=== PATIENT | female | born 1970 | race Caucasian/White ===

== ENCOUNTER → 2017-11-19 | Outpatient (CLI) | payer BC | LOC: MC.RAD 08:36 | DX: Z12.31 Encounter for screening mammogram for malignant neoplasm of breast (principal); N64.89 Other specified disorders of breast ==

== ENCOUNTER → 2017-11-21 | Outpatient (CLI) | payer BC | LOC: MC.RAD 10:09 | DX: N64.89 Other specified disorders of breast (principal) ==

== ENCOUNTER 2019-01-14 13:47 | Outpatient (RCR) | payer OTHER | END 2019-02-12 | disposition home or self-care (01) | LOC: WSOH | DX: S61.402A Unspecified open wound of left hand, initial encounter (principal); S46.812A Strain of other muscles, fascia and tendons at shoulder and upper arm level, left arm, initial encounter; S46.811A Strain of other muscles, fascia and tendons at shoulder and upper arm level, right arm, initial encounter; M54.5 Low back pain; M25.562 Pain in left knee; W01.0XXA Fall on same level from slipping, tripping and stumbling without subsequent striking against object, initial encounter; Y92.481 Parking lot as the place of occurrence of the external cause; Y99.0 Civilian activity done for income or pay ==

== ENCOUNTER 2019-02-20 13:00 | Outpatient (RCR) | payer OTHER | END 2019-02-27 09:28 | disposition home or self-care (01) | LOC: WSPT 13:00 | DX: M25.512 Pain in left shoulder (principal) | CPT/HCPCS: G0283-GP ==

== ENCOUNTER → 2019-03-26 | Outpatient (CLI) | payer OTHER | LOC: COL.RAD 13:56 | DX: S61.402A Unspecified open wound of left hand, initial encounter (principal); S46.812A Strain of other muscles, fascia and tendons at shoulder and upper arm level, left arm, initial encounter; S46.811A Strain of other muscles, fascia and tendons at shoulder and upper arm level, right arm, initial encounter | CPT/HCPCS: A9585; Q9967 ==

== ENCOUNTER 2019-03-30 11:22 | Outpatient (RCR) | payer OTHER | END 2019-03-31 15:08 | disposition still patient (30) | LOC: WSOH 11:22 | DX: S46.812D Strain of other muscles, fascia and tendons at shoulder and upper arm level, left arm, subsequent encounter (principal); S46.811D Strain of other muscles, fascia and tendons at shoulder and upper arm level, right arm, subsequent encounter; M19.032 Primary osteoarthritis, left wrist; M19.042 Primary osteoarthritis, left hand; M54.5 Low back pain; M25.562 Pain in left knee ==

== ENCOUNTER → 2019-05-26 | Outpatient (CLI) | payer BC | LOC: MC.RAD 16:45 | DX: Z12.31 Encounter for screening mammogram for malignant neoplasm of breast (principal) ==

== ENCOUNTER 2019-09-09 14:00 | Outpatient (RCR) | payer OTHER | END 2019-10-27 | disposition home or self-care (01) | LOC: WSPT | DX: Z98.890 Other specified postprocedural states (principal) | CPT/HCPCS: G0283-GP ==

== ENCOUNTER 2020-11-07 14:40 | Outpatient (RCR) | payer OTHER | END 2020-11-24 | disposition home or self-care (01) | LOC: WSOH | DX: S60.229A Contusion of unspecified hand, initial encounter (principal); S16.1XXA Strain of muscle, fascia and tendon at neck level, initial encounter; M26.609 Unspecified temporomandibular joint disorder, unspecified side; H81.09 Meniere's disease, unspecified ear; Z98.890 Other specified postprocedural states; W01.0XXA Fall on same level from slipping, tripping and stumbling without subsequent striking against object, initial encounter; Y99.0 Civilian activity done for income or pay ==

== ENCOUNTER 2020-12-27 15:45 | Outpatient (RCR) | payer OTHER | END 2021-01-19 12:09 | disposition home or self-care (01) | LOC: WSOH 15:45 | DX: M25.551 Pain in right hip (principal) ==

== ENCOUNTER 2021-02-02 08:03 | Outpatient (RCR) | payer OTHER | END 2021-02-06 11:01 | LOC: WSOH 08:03 | DX: S60.229D Contusion of unspecified hand, subsequent encounter (principal); S16.1XXD Strain of muscle, fascia and tendon at neck level, subsequent encounter; W01.0XXD Fall on same level from slipping, tripping and stumbling without subsequent striking against object, subsequent encounter; H81.09 Meniere's disease, unspecified ear; Z98.890 Other specified postprocedural states; Y99.0 Civilian activity done for income or pay ==

== ENCOUNTER → 2021-05-29 | Outpatient (CLI) | payer BC | LOC: MC.RAD 15:02 | DX: Z12.31 Encounter for screening mammogram for malignant neoplasm of breast (principal) ==

== ENCOUNTER → 2024-01-31 | Outpatient (CLI) | payer BC | LOC: MC.RAD 14:39 | DX: Z12.31 Encounter for screening mammogram for malignant neoplasm of breast (principal) ==